=== PATIENT | female | born 1950 | race Caucasian/White ===

== ENCOUNTER 2018-01-14 16:38 | Outpatient (REF) | payer MEDICARE, BC, SELFPAY ==
[2018-01-14 21:42] LABS: Abs Immature Grans 0.01 k/cumm (0.0-0.09); Absolute Basophil Count 0.03 k/cumm (0.0-0.2); Absolute Eosinophil Count 0.04 k/cumm (0.0-0.7); Absolute Monocyte Count 0.38 k/cumm (0.11-0.7); Absolute Neutrophil Count 2.11 k/cumm (1.2-6.7); Basophils % 0.8; Eosinophils % 1.1; HCT 40.7 % (36.0-46.0); HGB 14.3 g/dL (12.0-15.5); Immature Grans % 0.3; Mean Corp. HGB Concentration 35.1 g/dL (32.0-36.0); Mean Corpuscular Hemoglobin 30.8 pg (27.0-33.0); Mean Corpuscular Volume 87.7 fL (80-95); Mean Platelet Volume 9.3 fL (8.0-11.0); Monocytes % 10.6; Neutrophils % 59.2; Platelet Count 223 x1000/uL (130-400); RBC 4.64 m/cumm (4.00-5.20); RBC Distribution Width 12.8 % (11.7-14.6); White Blood Cell Count 3.57 k/cumm (4.4-10.8)
== END 2018-01-14 16:58 ==
LOC: NCHCN 16:38
PROVIDERS: PCP Nurse Practitioner Family; Visit Provider Family Medicine
DX: D72.819 Decreased white blood cell count, unspecified (principal)
CPT/HCPCS: 85025

== ENCOUNTER 2018-02-15 15:21 | Outpatient (REF) | payer MEDICARE, BC, SELFPAY ==
[2018-02-15 21:19] LABS: Absolute Basophil Count 0.03 k/cumm (0.0-0.2); Absolute Eosinophil Count 0.13 k/cumm (0.0-0.7); Absolute Lymphocyte Count 1.37 k/cumm (1.2-3.4); Absolute Neutrophil Count 2.66 k/cumm (1.2-6.7); Basophils % 0.7; Eosinophils % 2.9; HCT 41.6 % (36.0-46.0); HGB 14.7 g/dL (12.0-15.5); Lymphocytes % 30.5; Mean Corp. HGB Concentration 35.3 g/dL (32.0-36.0); Mean Corpuscular Hemoglobin 31.6 pg (27.0-33.0); Mean Corpuscular Volume 89.5 fL (80-95); Mean Platelet Volume 9.5 fL (8.0-11.0); Monocytes % 6.7; Neutrophils % 59.2; Platelet Count 222 x1000/uL (130-400); RBC 4.65 m/cumm (4.00-5.20); RBC Distribution Width 13.1 % (11.7-14.6); White Blood Cell Count 4.49 k/cumm (4.4-10.8)
== END 2018-02-15 15:41 ==
LOC: NCHCN 15:21
PROVIDERS: PCP Nurse Practitioner Family; Visit Provider Family Medicine
DX: D72.819 Decreased white blood cell count, unspecified (principal)
CPT/HCPCS: 85025

== ENCOUNTER 2018-05-24 12:32 | Outpatient (REF) | payer MEDICARE, BC, SELFPAY ==
[2018-05-24 21:42] LABS: Abs Immature Grans 0.01 k/cumm (0.0-0.09); Absolute Basophil Count 0.01 k/cumm (0.0-0.2); Absolute Eosinophil Count 0.02 k/cumm (0.0-0.7); Absolute Lymphocyte Count 0.95 k/cumm (1.2-3.4); Absolute Monocyte Count 0.38 k/cumm (0.11-0.7); Absolute Neutrophil Count 3.28 k/cumm (1.2-6.7); Basophils % 0.2; Eosinophils % 0.4; HCT 43.5 % (36.0-46.0); HGB 15.5 g/dL (12.0-15.5); Immature Grans % 0.2; Lymphocytes % 20.4; Mean Corp. HGB Concentration 35.6 g/dL (32.0-36.0); Mean Corpuscular Hemoglobin 31.8 pg (27.0-33.0); Mean Corpuscular Volume 89.3 fL (80-95); Mean Platelet Volume 9.5 fL (8.0-11.0); Monocytes % 8.2; Neutrophils % 70.6; Platelet Count 222 x1000/uL (130-400); RBC 4.87 m/cumm (4.00-5.20); RBC Distribution Width 12.6 % (11.7-14.6); White Blood Cell Count 4.65 k/cumm (4.4-10.8)
[2018-05-24 22:15] LABS: ALT 34 U/L (12-78); AST 16 U/L (15-37); Albumin 4.2 g/dL (3.4-5.0); Alkaline Phosphatase 88 U/L (46-116); Anion Gap 9.2 mmol/L (3-11); BUN 9 mg/dL (7-18); Bilirubin, Total 0.6 mg/dL (0.2-1.0); CO2 28.8 mmol/L (21.0-32.0); CREATININE 0.64 mg/dL (0.55-1.02); Calcium 9.7 mg/dL (8.5-10.1); Chloride 101 mmol/L (98-107); Glucose 102 mg/dL (70-100); Lipase 123 U/L (73-393); Sodium 139 mmol/L (136-145); Total Protein 6.9 g/dL (6.4-8.2)
== END 2018-05-24 12:52 ==
LOC: NCHCN 12:32
PROVIDERS: PCP Nurse Practitioner Family; Visit Provider Nurse Practitioner Family
DX: R10.11 Right upper quadrant pain (principal); R74.0 Nonspecific elevation of levels of transaminase and lactic acid dehydrogenase [LDH]
CPT/HCPCS: 80053; 83690; 85025

== ENCOUNTER 2019-11-24 21:02 | Outpatient (REF) | payer MEDICARE, BC, SELFPAY ==
[2019-11-24 21:31] LABS: Anion Gap 8.6 mmol/L (3-11); BUN 9 mg/dL (7-18); CO2 28.4 mmol/L (21.0-32.0); CREATININE 0.52 mg/dL (0.55-1.02); Calcium 9.3 mg/dL (8.5-10.1); Chloride 95 mmol/L (98-107); Glucose 96 mg/dL (74-106); Sodium 132 mmol/L (136-145)
== END 2019-11-24 21:22 ==
LOC: LBN 21:02
PROVIDERS: PCP Nurse Practitioner Family; Visit Provider Internal Medicine Endocrinology, Diabetes & Metabolism
DX: M81.8 Other osteoporosis without current pathological fracture (principal)
CPT/HCPCS: 80048; 82306

== ENCOUNTER 2020-02-01 11:27 | Outpatient (REF) | payer MEDICARE, BC, SELFPAY ==
[2020-02-01 22:21] LABS: Anion Gap 8.3 mmol/L (3-11); BUN 9 mg/dL (7-18); CO2 27.7 mmol/L (21.0-32.0); CREATININE 0.41 mg/dL (0.55-1.02); Calcium 9.2 mg/dL (8.5-10.1); Chloride 101 mmol/L (98-107); Glucose 95 mg/dL (74-106); Potassium 4.1 mmol/L (3.5-5.1); Sodium 137 mmol/L (136-145)
== END 2020-02-01 11:47 ==
LOC: LBN 11:27
PROVIDERS: PCP Nurse Practitioner Family; Visit Provider Internal Medicine Endocrinology, Diabetes & Metabolism
DX: M81.0 Age-related osteoporosis without current pathological fracture (principal); Z79.899 Other long term (current) drug therapy
CPT/HCPCS: 80048

== ENCOUNTER 2020-09-06 14:29 | Outpatient (REF) | payer MEDICARE, BC, SELFPAY ==
[2020-09-06 21:38] LABS: Anion Gap 9.5 mmol/L (3-11); BUN 11 mg/dL (7-18); CO2 27.5 mmol/L (21.0-32.0); CREATININE 0.6 mg/dL (0.55-1.02); Calcium 9.3 mg/dL (8.5-10.1); Chloride 98 mmol/L (98-107); Glucose 102 mg/dL (74-106); Potassium 4.5 mmol/L (3.5-5.1); Sodium 135 mmol/L (136-145)
== END 2020-09-06 14:30 | disposition home or self-care (01) ==
LOC: NCHCN 14:29
PROVIDERS: PCP Nurse Practitioner Family; Visit Provider Family Medicine
DX: E61.7 Deficiency of multiple nutrient elements (principal); I10 Essential (primary) hypertension; Z87.898 Personal history of other specified conditions; M81.0 Age-related osteoporosis without current pathological fracture
CPT/HCPCS: 80048; 82306

== ENCOUNTER 2021-01-22 21:33 | Outpatient (REF) | payer MEDICARE, BC, SELFPAY ==
[2021-01-22 22:09] LABS: Anion Gap 6.5 mmol/L (3-11); BUN 11 mg/dL (7-18); CO2 27.5 mmol/L (21.0-32.0); CREATININE 0.6 mg/dL (0.55-1.02); Calcium 9.2 mg/dL (8.5-10.1); Chloride 100 mmol/L (98-107); Glucose 90 mg/dL (74-106); Potassium 4.2 mmol/L (3.5-5.1); Sodium 134 mmol/L (136-145)
[2021-01-24 00:56] LABS: Vitamin D 25 Total 59.3 ng/mL (30-100)
[2021-01-25 16:23] LABS: Procollagen I IntactN-Terminal 63 mcg/L
== END 2021-01-22 21:34 | disposition home or self-care (01) ==
LOC: NCHCN 21:33
PROVIDERS: PCP Nurse Practitioner Family; Visit Provider Nurse Practitioner Family
DX: M81.0 Age-related osteoporosis without current pathological fracture (principal); M81.8 Other osteoporosis without current pathological fracture
CPT/HCPCS: 80048; 82306; 83519

== ENCOUNTER 2022-02-25 12:55 | Outpatient (REF) | payer MEDICARE, BC, SELFPAY ==
[2022-02-25 15:06] LABS: ALT 27 U/L (14-59); AST 22 U/L (15-37); Alkaline Phosphatase 60 U/L (46-116); Anion Gap 5.3 mmol/L (3-11); BUN 14 mg/dL (7-18); Bilirubin, Total 0.7 mg/dL (0.2-1.0); CO2 30.7 mmol/L (21.0-32.0); CREATININE 0.6 mg/dL (0.55-1.02); Calcium 9.3 mg/dL (8.5-10.1); Chloride 99 mmol/L (98-107); Estimated GFR 95.31 (mL/min/1.73m2); Glucose 94 mg/dL (74-106); Potassium 4.3 mmol/L (3.5-5.1); Sodium 135 mmol/L (136-145); Total Protein 7.2 g/dL (6.4-8.2)
== END 2022-02-25 12:56 | disposition home or self-care (01) ==
LOC: LBN 12:55
PROVIDERS: PCP Nurse Practitioner Family; Visit Provider Internal Medicine Endocrinology, Diabetes & Metabolism
DX: M81.8 Other osteoporosis without current pathological fracture (principal)
CPT/HCPCS: 80053; 82306